=== PATIENT | female | born 1950 | race Caucasian/White ===

== ENCOUNTER 2021-01-26 13:44 | Outpatient (CLI) | payer MEDICARE, SELFPAY | END 2021-01-26 13:45 | disposition home or self-care (01) | LOC: ANHCOVIDVC 13:44 | PROVIDERS: PCP Family Medicine Adolescent Medicine | DX: Z23 Encounter for immunization (principal) | CPT/HCPCS: 0001A; 91300 ==

== ENCOUNTER 2021-02-16 13:45 | Outpatient (CLI) | payer MEDICARE, SELFPAY | END 2021-02-16 13:46 | disposition home or self-care (01) | LOC: ANHCOVIDVC 13:45 | PROVIDERS: PCP Family Medicine Adolescent Medicine | DX: Z23 Encounter for immunization (principal) | CPT/HCPCS: 0002A; 91300 ==

== ENCOUNTER → 2023-06-12 10:53 | Outpatient (CLI) | payer MEDICARE, SELFPAY ==
--- NOTE | ~2023-06-12 | XR_ITS ---
XR hip RT min 2V DATE: 06/12/2023 11:28 INDICATION: Right hip pain TECHNIQUE: AP and lateral views of right hip COMPARISON: None FINDINGS: Mild spurring of the right femoral head consistent with mild right hip osteoarthritis. No fracture or dislocation, periosteal reaction or bone destruction. No evidence of avascular necrosi s of the right femoral head is detected. Normal alignment at the pubic symphysis. IMPRESSION: Mild right hip osteoarthritis Reviewed, dictated and finalized at location L.
--- NOTE | ~2023-06-12 | XR_ITS ---
XR lumbar spine 2-3V DATE: 06/12/2023 11:28 INDICATION: Bilateral radicular lower extremity pain TECHNIQUE: Standing AP, lateral, coned lateral lumbosacral views COMPARISON: None FINDINGS: There is osteopenia. No fracture or bone destruction of the lumbar spine. The included lower thoracic and lumbar pedicles are intact. Moderately severe degenerative disease at L1-2. Mild degenerative disease at L2-3, L3-4. Moderately severe degenerative disc disease at L4-5 and severe degenerative disc disease at L5-S1. Degenerative changes apophyseal joints with associated minimal grade 1 anterolisthesis at L4-5. The sacroiliac joints are intact. Surgical clips, right upper quadrant, likely due to cholecystectomy. IMPRESSION: Osteopenia Multilevel degenerative disc disease, most severe at L5-S1 Minimal grade 1 anterolisthesis at L4-5 due to degenerative changes at apophyseal joints Reviewed, dictated and finalized at location L. IMPRESSION: Osteopenia Multilevel degenerative disc disease, most severe at L5-S1 Minimal grade 1 anterolisthesis at L4-5 due to degenerative changes at apophyse al joints
== END ==
PROVIDERS: PCP Family Medicine Adolescent Medicine; Visit Provider Family Medicine Adolescent Medicine
DX: M16.11 Unilateral primary osteoarthritis, right hip (principal); M85.88 Other specified disorders of bone density and structure, other site; M51.37 Other intervertebral disc degeneration, lumbosacral region
CPT/HCPCS: 72100; 73502